=== PATIENT | female | born 1945 | race Caucasian/White ===

== ENCOUNTER 2016-05-14 20:00 | Emergency (ER) | payer MEDICARE, OTHER ==
[2016-05-14] MEDS ORDERED: SODIUM CHLORIDE 0.9% 1,000 ML ONE (21:04)
== END 2016-05-15 00:42 | disposition home or self-care (01) ==
LOC: ER 20:00
DX: R10.32 Left lower quadrant pain (principal); C34.90 Malignant neoplasm of unspecified part of unspecified bronchus or lung; K21.9 Gastro-esophageal reflux disease without esophagitis; K58.9 Irritable bowel syndrome, unspecified; K57.30 Diverticulosis of large intestine without perforation or abscess without bleeding; Z86.718 Personal history of other venous thrombosis and embolism; Z86.73 Personal history of transient ischemic attack (TIA), and cerebral infarction without residual deficits; Z96.659 Presence of unspecified artificial knee joint; Z79.899 Other long term (current) drug therapy
CPT/HCPCS: 36415; 74022; 80053; 81003; 83605; 83690; 85025; 87040; 96360; 96361